=== PATIENT | female | born 1960 | race Caucasian/White ===

== ENCOUNTER 2018-11-06 18:33 | Emergency (ER) | payer SELFPAY ==
[~2018-11-06] VITALS: Ht 165.1 cm; Wt 61.0 kg
[~2018-11-06 18:33] MED LIST: NAPR-985 PO
[2018-11-06 18:41] VITALS: BP 145/75; PULSE 87; RESP 18; Ht 165.1 cm; Wt 61.0 kg
[2018-11-06] MEDS ORDERED: KETOROLAC 30 MG INJ IM STA (20:20)
== END 2018-11-06 22:11 | disposition home or self-care (01) ==
LOC: FTE 18:33
DX: M25.512 Pain in left shoulder (principal); E11.9 Type 2 diabetes mellitus without complications; F17.210 Nicotine dependence, cigarettes, uncomplicated; M54.6 Pain in thoracic spine
CPT/HCPCS: 72040; 72072; 72100; 73030; 96372; 99284; J1885